=== PATIENT | female | born 1995 | race Caucasian/White ===

== ENCOUNTER 2020-03-10 09:54 | Outpatient (CLI) | payer OTHER ==
[~2020-03-10] VITALS: Ht 177.8 cm; Wt 88.6 kg
[2020-03-10] MEDS ORDERED: PREN1TAB60 PO (10:02)
[2020-03-10] MEDS ORDERED: NPH,100V SQ (10:02)
[2020-03-10 10:04] VITALS: BP 119/76
== END 2020-03-10 10:34 | disposition home or self-care (01) ==
LOC: LDOP 09:54
PROVIDERS: ATTEND Obstetrics & Gynecology
DX: Z34.93 Encounter for supervision of normal pregnancy, unspecified, third trimester (principal); Z3A.35 35 weeks gestation of pregnancy
CPT/HCPCS: 59025

== ENCOUNTER 2020-04-06 01:48 | Inpatient (IN) | payer OTHER ==
[~2020-04-06] VITALS: Ht 177.8 cm; Wt 89.0 kg
[~2020-04-06 01:48] MED LIST: NPH,100V SQ; PREN1TAB60 PO
[2020-04-06] MEDS ORDERED: PLEASE ENTER HEIGHT AND WEIGHT MC SCH (21:42)
[2020-04-06] MEDS ORDERED: OXYTOCIN 30U/ 0.9% NaCL 500ML 500 ML ONE (21:45)
[2020-04-06] MEDS ORDERED: LIDOCAINE 1%, 20ML ONE (21:46)
[2020-04-06] MEDS ORDERED: LIDOCAINE 1%, 10ML ONE (21:46)
[2020-04-06] MEDS ORDERED: MISOPROSTOL 200 MCG TABLET ONE (21:46)
[2020-04-06] MEDS ORDERED: MISOPROSTOL 25 MCG TABLET ONE (21:47)
[2020-04-06] MEDS: LACTATED RINGERS 1,000 ML IV SCH (21:57)
[2020-04-06] MEDS ORDERED: METOCLOPRAMIDE 5 MG/ML, 2ML IVPush PRN (22:00)
[2020-04-06] MEDS ORDERED: SODIUM CHLORIDE FLUSH 10ML SYR IVF PRN (22:00)
[2020-04-06] MEDS ORDERED: ONDANSETRON 2MG/ML, 2ML IVPush PRN (22:00)
[2020-04-06] MEDS ORDERED: CALCIUM CARBONATE 500 MG TAB.CHEW PO PRN (22:00)
[2020-04-06] MEDS ORDERED: FENTANYL PF 100 MCG/2ML IVPush PRN (22:00)
[2020-04-06] MEDS ORDERED: OXYTOCIN 30U/ 0.9% NaCL 500ML 500 ML IV ONE (22:00)
[2020-04-06] MEDS ORDERED: TERBUTALINE 1 MG/ML, 1ML IVPush PRN (22:00)
[2020-04-06] MEDS ORDERED: D5%-LACTATED RINGERS 1,000 ML IV SCH (22:00)
[2020-04-06] MEDS ORDERED: ALUMINUM/MAG/SIMETHICONE 30 ML UDC PO PRN (22:00)
[2020-04-06] MEDS ORDERED: FENTANYL PF 100 MCG/2ML IV PRN (22:00)
[2020-04-06] MEDS ORDERED: TERBUTALINE 1 MG/ML, 1ML SQ PRN (22:00)
[2020-04-06] MEDS ORDERED: SODIUM CITRATE/CITRIC ACID 30 ML UDC PO PRN (22:00)
[2020-04-06] MEDS: MISOPROSTOL 25 MCG TABLET VG PRN (22:03)
[2020-04-06 22:10] LABS: BASOPHILS % (AUTO) 1 % (0-1); EOSINOPHILS % (AUTO) 1 % (1-7); LYMPHOCYTES % (AUTO) 30 % (22-44); MEAN CORPUSCULAR HEMOGLOBIN 24.9 pg (27.0-34.8); MEAN CORPUSCULAR HGB CONC 32.3 g/dL (32.4-35.8); MEAN PLATELET VOLUME 9.4 fL (7.4-10.4); MONOCYTES % (AUTO) 10 % (2-9); NEUTROPHILS % (AUTO) 58 % (42-75); PLATELET COUNT 187 x10^3/uL (130-400); RED BLOOD COUNT 4.78 x10^6/uL (3.82-5.3); RED CELL DISTRIBUTION WIDTH 17.2 % (9.6-15.2)
[2020-04-06 22:12] LABS: MD NO
[2020-04-06 22:26] VITALS: BP 112/76
[2020-04-07] MEDS ORDERED: MISOPROSTOL 25 MCG TABLET ONE (01:48)
[2020-04-07] MEDS: MISOPROSTOL 25 MCG TABLET VG PRN (02:01)
[2020-04-07] MEDS ORDERED: OXYTOCIN 30U/ 0.9% NaCL 500ML 500 ML IV PRN (08:30)
[2020-04-07] MEDS: LACTATED RINGERS 1,000 ML IV SCH ×2 (09:10→12:16)
[2020-04-07] MEDS ORDERED: BUPIVACAINE 0.25% ONE ×3 (09:32→10:29)
[2020-04-07] MEDS ORDERED: FENTANYL/BUPIV./NS/PF 250 ML EPIDCONT ONE (09:33)
[2020-04-07] MEDS ORDERED: LACTATED RINGERS 1,000 ML IVBOLUS PRN (10:00)
[2020-04-07] MEDS ORDERED: EPHEDRINE 50 MG/ML, 1ML IVPush PRN (10:00)
[2020-04-07] MEDS ORDERED: LACTATED RINGERS 1,000 ML IV SCH (10:00)
[2020-04-07] MEDS ORDERED: FENTANYL/BUPIV./NS/PF 250 ML EPIDCONT SCH (10:00)
[2020-04-07] MEDS ORDERED: OXYTOCIN 30U/ 0.9% NaCL 500ML 500 ML ONE (12:27)
[2020-04-07] MEDS ORDERED: ONDANSETRON 2MG/ML, 2ML IV PRN (14:30)
[2020-04-07] MEDS: OXYTOCIN 30U/ 0.9% NaCL 500ML 500 ML IV SCH ×8 (14:30→22:37)
[2020-04-07] MEDS ORDERED: CALCIUM CARBONATE 500 MG TAB.CHEW PO PRN (14:30)
[2020-04-07] MEDS ORDERED: SIMETHICONE 80 MG CHEW TAB PO PRN (14:30)
[2020-04-07] MEDS ORDERED: BISACODYL 10 MG SUPP PR PRN (14:30)
[2020-04-07] MEDS ORDERED: MISOPROSTOL 200 MCG TABLET PR PRN (14:30)
[2020-04-07] MEDS ORDERED: ACETAMINOPHEN 325 MG TABLET PO PRN ×2 (14:30)
[2020-04-07] MEDS ORDERED: HYDROcodone/APAP 5/325 TABLET PO PRN (14:30)
[2020-04-07] MEDS ORDERED: IBUPROFEN 600 MG TABLET ONE (14:33)
[2020-04-07] MEDS: IBUPROFEN 600 MG TABLET PO PRN (14:35)
[2020-04-07 16:51] VITALS: BP 106/71
[2020-04-07] MEDS: HYDROcodone/APAP 5/325 TABLET PO PRN (18:04)
[2020-04-07] MEDS: DOCUSATE 100 MG CAPSULE PO PRN (18:56)
[2020-04-07 19:05] VITALS: BP 100/71
[2020-04-07] MEDS ORDERED: RHOGAM FROM BLOOD BANK 1 NOTE EA IM/IV ONE (23:00)
[2020-04-07 23:18] LABS: BASOPHILS % (AUTO) 0 % (0-1); EOSINOPHILS % (AUTO) 1 % (1-7); LYMPHOCYTES % (AUTO) 20 % (22-44); MEAN CORPUSCULAR HEMOGLOBIN 24.5 pg (27.0-34.8); MEAN CORPUSCULAR HGB CONC 31.7 g/dL (32.4-35.8); MEAN PLATELET VOLUME 9.1 fL (7.4-10.4); MONOCYTES % (AUTO) 6 % (2-9); NEUTROPHILS % (AUTO) 73 % (42-75); PLATELET COUNT 165 x10^3/uL (130-400); RED BLOOD COUNT 4.32 x10^6/uL (3.82-5.3); RED CELL DISTRIBUTION WIDTH 17.6 % (9.6-15.2)
[2020-04-07 23:20] LABS: MD NO
[2020-04-08 00:11] VITALS: BP 100/60
[2020-04-08] MEDS: OXYTOCIN 30U/ 0.9% NaCL 500ML 500 ML IV SCH ×3 (00:30→10:09)
[2020-04-08 04:00] VITALS: BP 101/65
[2020-04-08] MEDS: IBUPROFEN 600 MG TABLET PO PRN ×2 (05:21→13:29)
[2020-04-08] MEDS ORDERED: IBUP-1222 PO (07:37)
[2020-04-08 08:19] VITALS: BP 90/57
[2020-04-08] MEDS: DOCUSATE 100 MG CAPSULE PO PRN (08:20)
[2020-04-08] MEDS: HYDROcodone/APAP 5/325 TABLET PO PRN ×2 (08:21→13:28)
[2020-04-08] MEDS ORDERED: PRENATAL VIT/IRON/FA 1 EACH TABLET PO SCH (09:00)
== END 2020-04-08 15:50 | disposition home or self-care (01) | DRG 807 ==
LOC: LDIP 21:06 → 2NW 04-07 16:23
PROVIDERS: ADMIT Obstetrics & Gynecology; ATTEND Obstetrics & Gynecology
PROC: 0KQM0ZZ Repair Perineum Muscle, Open Approach (ICD-10-PCS; principal; 2020-04-07)
PROC: 10E0XZZ Delivery of Products of Conception, External Approach (ICD-10-PCS; 2020-04-07)
PROC: 10907ZC Drainage of Amniotic Fluid, Therapeutic from Products of Conception, Via Natural or Artificial Opening (ICD-10-PCS; 2020-04-07)
PROC: 3E0P7VZ Introduction of Hormone into Female Reproductive, Via Natural or Artificial Opening (ICD-10-PCS; 2020-04-07)
PROC: 3E033VJ Introduction of Other Hormone into Peripheral Vein, Percutaneous Approach (ICD-10-PCS; 2020-04-07)
PROC: 3E0234Z Introduction of Serum, Toxoid and Vaccine into Muscle, Percutaneous Approach (ICD-10-PCS; 2020-04-07)
PROC: 3E0R3BZ Introduction of Anesthetic Agent into Spinal Canal, Percutaneous Approach (ICD-10-PCS; 2020-04-07)
PROC: 00HU33Z Insertion of Infusion Device into Spinal Canal, Percutaneous Approach (ICD-10-PCS; 2020-04-07)
DX: O69.81X0 Labor and delivery complicated by cord around neck, without compression, not applicable or unspecified (principal); Z37.0 Single live birth; O70.1 Second degree perineal laceration during delivery; O24.424 Gestational diabetes mellitus in childbirth, insulin controlled; Z3A.39 39 weeks gestation of pregnancy; Z82.49 Family history of ischemic heart disease and other diseases of the circulatory system; Z83.3 Family history of diabetes mellitus; O71.89 Other specified obstetric trauma; Z20.822 Contact with and (suspected) exposure to COVID-19
CPT/HCPCS: 82962; 85025; 85461; 86592; 86850; 86900; 87635; G0378; J2790; J2590; J7120